=== PATIENT | male | born 1980 | race Caucasian/White ===

== ENCOUNTER 2022-04-30 14:52 | Emergency (ER) | payer MEDICARE, OTHER ==
[~2022-04-30] VITALS: Ht 175.3 cm; Wt 65.8 kg
--- NOTE | 2022-04-30 14:59 | NUR ---
ARRIVAL PT ARRIVED AMBULATORY TO ED 8 WITH C/O SUICIDAL THOUGHTS. PT STATES IF WE DONT ADMIT HIM HES GOING TO RUN IN FRONT OF A TRAIN AND HE TRIED TO TALK TO HIS FAMILY AND THEY ARE TIRED OF HIM. PT IS NOT ON ANTIDEPRESSANTS AND HAS INPT AND OUTPT EXPERIENCE. EVERYTHING TAKEN OUT OF THE ROOM, PTS CLOTHING AND BELONGINGS REMOVED. VITALS TAKEN AND DR NOTIFIED.
--- NOTE | 2022-04-30 15:10 | NUR ---
AIDA CALLED [facility] FOR AN EVALUATION
[2022-04-30 15:14] VITALS: BP 133/86
--- NOTE | 2022-04-30 15:14 | PCM.EKG ---
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
[2022-04-30 15:24] LABS: BASOPHIL % 0.3 % (0.0-0.2); EOSINOPHIL % 0.1 % (0.0-5.0); LYMPHOCYTES # 1.18 10^3/uL1 (1.0-4.8); LYMPHOCYTES % 13.5 % (24.0-44.0); MEAN CORP HGB 32.8 pg (26-34); MONOCYTES # 0.5 10^3/uL (0.3-0.8); MONOCYTES % 5.8 % (5.0-12.0); NEUTROPHILS % 80.3 % (41.0-85.0); PLATELET COUNT 182 10^3/uL (150-400); RED CELL DISTRIBUTION WIDTH 12.8 % (11.5-14.5)
--- NOTE | 2022-04-30 15:30 | NUR ---
PSYCH NURSE CONSULT: CSS[facility] AND PSYCH EVALUATION FOR POSSIBLE ADMISSION TO U COMPLETED. PATIENT IS HIGH RISK FOR SUICIDE. THIS NURSE WILL CONTACT PSYCHIATRIC PROVIDER.
[2022-04-30 15:37] LABS: BILIRUBIN,URINE NEGATIVE (NEGATIVE); UROBILINOGEN,URINE 0.2 E.U./dL (0.2)
--- NOTE | 2022-04-30 15:47 | ER.PDOC ---
General Chief Complaint: Requesting Medical Care Stated Complaint: MEDICAL CLEARANCE Time seen by MD: 15:43 Source: patient Exam Limitations: no limitations History of Present Illness Initial Comments Medical clearance for inpatient psychiatric treatment for suicidal ideation today. Patient has thoughts of jumping on a railway. Timing/Duration: this morning Intent: Suicide Severity: moderate Associated Symptoms: Suicidal Thoughts Prior symptoms/Treatment: Similar symptoms previous Allergies: Coded Allergies: No Known Allergies (Unverified , 04/30/22) Past Medical History Medical History: no pertinent history Surgical History: no surgical history Family History Significant Family History: no pertinent family hx Social History Smoking: non-smoker Alcohol Use: none Drug Use: marijuana Reviewed Nursing Reviewed: Vital Signs, Abn. Noted, Nursing Assessment Review of Systems Constitutional: no symptoms reported EENTM: no symptoms reported Respiratory: no symptoms reported Cardiovascular: no symptoms reported Gastrointestinal: no symptoms reported Psychiatric/Neurological: see HPI All Other Systems: Reviewed and Negative Physical Exam General Appearance: No acute distress, Alert Neck: Non-Tender, Full Range of Motion, Supple, Normal Inspection Respiratory: chest non-tender, lungs clear, normal breath sounds, no respiratory distress, no accessory muscle use Cardiovascular: Normal Peripheral Pulses, Regular Rate, Rhythm, No Edema, No Gallop, No JVD, No Murmur Gastrointestinal: Normal Bowel Sounds, No Organomegaly, No Pulsatile Mass, Non Tender, Soft Extremities: Non-Tender, Normal Range of Motion, No Evidence of Trauma, No Edema Neurological/Psychiatric: Depressed Affect Appearance/Memory/Insight: Appropriate Appearance, Appropriate Insight, Neat, No Memory Impairment Behavior/Eye Contact/Speech: Threatening Eye Contact Thoughts/Hallucinations: Normal Thought Pattern, No Apparent Hallucination Skin: Normal Color, Warm/Dry Results/Orders Results/Orders Orders - STIVEN TRIMBLE MD Nicotine (Nicotine 21 Mgpatch) (05/01/22 09:07) Acetaminophen (Tylenol) (05/01/22 09:09) Vital Signs Date Time Temp Pulse Resp B/P (MAP) Pulse Ox O2 Delivery O2 Flow Rate FiO2 05/01/22 08:13 97.7 65 16 130/66 (87) 95 Room Air* 0 21 05/01/22 06:00 98.6 59 20 115/64 (81) 97 Room Air* 0 21 04/30/22 15:14 98.8 86 18 133/86 (102) 97 Room Air* 0 21 04/30/22 15:14 98.8 86 18 97 04/30/22 15:14 98.8 86 18 Administered Medications Medications (Trade) Dose Ordered Sig/Katy Route PRN Reason Start Time Stop Time Status Last Admin Dose Admin Acetaminophen (Tylenol) 500 mg STAT STAT PO 05/01/22 09:09 05/01/22 09:10 DC 05/01/22 09:11 500 MG Ibuprofen (Motrin) 600 mg OT ONCE PO 05/01/22 03:30 05/01/22 03:32 DC 05/01/22 03:30 600 MG Ibuprofen (Motrin) 600 mg STAT STAT PO 04/30/22 17:40 04/30/22 17:41 DC 04/30/22 17:41 600 MG Nicotine (Nicotine 21 Mgpatch) 1 each STAT STAT TD 05/01/22 00:00 05/01/22 06:23 DC 05/01/22 00:01 1 EACH Nicotine (Nicotine 21 Mgpatch) 1 each STAT STAT TD 05/01/22 09:07 05/01/22 09:08 DC 05/01/22 09:08 1 EACH Laboratory Tests Test 04/30/22 00:00 04/30/22 15:18 Urine Collection Type UNKNOWN Urine Color YELLOW Urine Appearance CLEAR Urine Bilirubin NEGATIVE (NEGATIVE) Urine Ketones NEGATIVE (NEGATIVE) Urine Specific [place] 1.015 (1.005-1.030) Urine pH 6.0 (4.5-8.0) Urine Protein NEGATIVE (NEGATIVE) Urine Urobilinogen 0.2 E.U./dL (0.2) Urine Nitrate NEGATIVE (NEGATIVE) Urine Leukocyte Esterase NEGATIVE (NEGATIVE) Urine Glucose (Auto)(UA) NEGATIVE (NEGATIVE) Urine Blood NEGATIVE (NEGATIVE) Urine Opiates Screen PRESUMPTIVE POSITIVE Urine Methadone Screen PRESUMPTIVE POSITIVE Urine Barbiturates Screen NEGATIVE (c/o200ng/mL) Urine Phencyclidine Screen NEGATIVE (c/o 25ng/mL) Ur Amphetamine/Methamphetamine NEGATIVE (yv7276un/mL) Urine MDMA Screen (Ecstasy) NEGATIVE (c/o300ng/mL) Urine Benzodiazepines Screen NEGATIVE (c/o200ng/mL) Urine Cocaine Metabolite Screen NEGATIVE (c/o300ng/mL) Ur Tetrahydrocannabinol (THC) Scrn PRESUMPTIVE POSITIVE (c/o SARS-CoV-2 Antigen (Rapid) NEGATIVE (NEGATIVE) White Blood Count 8.7 10^3/uL (4.5-11.0) Red Blood Count 4.15 10^6/uL (4.50-5.90) L Hemoglobin 13.6 g/dL (13.9-16.3) L Hematocrit 40.0 % (37.0-53.0) Mean Corpuscular Volume 96.4 fL (78-100) Mean Corpuscular Hemoglobin 32.8 pg (26-34) Mean Corpuscular Hemoglobin Concent 34.0 g/dL (33-36.5) Red Cell Distribution Width 12.8 % (11.5-14.5) Platelet Count 182 10^3/uL (150-400) Mean Platelet Volume 9.4 fL (7.8-11.0) Neutrophils (%) (Auto) 80.3 % (41.0-85.0) Lymphocytes (%) (Auto) 13.5 % (24.0-44.0) L Monocytes (%) (Auto) 5.8 % (5.0-12.0) Neutrophils # (Auto) 7.0 10^3/uL (1.8-7.7) Lymphocytes # (Auto) 1.18 10^3/uL1 (1.0-4.8) Monocytes # (Auto) 0.5 10^3/uL (0.3-0.8) Absolute Immature Granulocyte (auto 0 10^3 u/L (0-2) Absolute Eosinophils (auto) 0.0 10^3/uL (0.0-0.2) Immature Granulocytes % 0.00 % (0.00-0.50) Eosinophils % 0.1 % (0.0-5.0) Basophils % 0.3 % (0.0-0.2) H Basophils # 0.0 10^3/uL (0.0-0.1) Sodium Level 140 mmol/L (132-145) Potassium Level 3.7 mmol/L (3.6-5.2) Chloride Level 104.0 mmol/L (96-109) Carbon Dioxide Level 28.9 mmol/L (20.0-32) Anion Gap 10.8 Blood Urea Nitrogen 15 mg/dL (7-18) Creatinine 0.90 mg/dL (0.59-1.40) Estimated GFR () 113.7 (>/=60) Est GFR (CKD-EPI)(Non-Afr [place]) 93.9 (>/=60) BUN/Creatinine Ratio 16.0 Glucose Level 108 mg/dL (70-110) Calcium Level 8.8 mg/dL (8.4-10.5) Total Bilirubin 0.5 mg/dL (0.2-1.0) Aspartate Amino Transferase (AST) 19 U/L (0-35) Alanine Aminotransferase (ALT) 21 U/L (12-78) Alkaline Phosphatase 48 U/L (50-136) L Troponin I High Sensitivity 5 ng/L (0-75) Total Protein 6.9 g/dL (6.4-8.2) Albumin 4.1 g/dL (3.4-5.0) Globulin 2.8 Albumin/Globulin Ratio 1.464 Triglycerides Level 54 mg/dL (20-160) Cholesterol Level 158 mg/dL (120-240) LDL Cholesterol, Calculated 96.2 VLDL Cholesterol, Calculated 10.8 HDL Cholesterol 51 mg/dL (32-96) Cholesterol Ratio (LDL/HDL) 1.8 Cholesterol/HDL Ratio 3.684268 Vitamin D 25-Hydroxy 24.5 ng/mL (30.0-100.0) L Thyroid Stimulating Hormone (TSH) 2.052 mIU/mL (0.358-3.740) Salicylates Level < 2.8 mg/dL (2.8-20.0) L Acetaminophen Level 6 ug/mL (10-30) L Progress Progress CBC is unremarkable. Chemistry is normal. Lipid panel is unremarkable. Aspirin and Tylenol are normal. UDS positive for methadone and THC. Urinalysis negative. 8am on 05/01/2022: [facility] Care transferred to Dr. Trimble. Atilio. Minimal change in clinical condition; awaiting bed availability at psychiatric treatment facility. This is ultimately accomplished, court orders and other things arranged, and pt is transferred 12:36 EKG/XRAY/CT/US EKG: NSR EKG Comments: HR 73, normal P axis ER DEPART Departure Time of Disposition: 12:36 Disposition: 02 SHORT TERM HOSPITAL Impression: Primary Impression: Suicidal ideation Condition: Stable Referrals: PCP,UNKNOWN (PCP) PRIMARY CARE PROVIDER Comments Patient medically cleared for inpatient psychiatric treatment. Duration or Time Spent with Pa: 2 hours NORBERT TREVINO MD Apr 30, 2022 15:47 STIVEN TRIMBLE MD May 01, 2022 09:25
[2022-04-30 16:07] LABS: CARBON DIOXIDE 28.9 mmol/L (20.0-32); GLUCOSE 108 mg/dL (70-110)
--- NOTE | 2022-04-30 16:42 | NUR ---
Luis Luis DECLINED DUE TO NOT BEING ABLE TO MEET HIS NEEDS AND NOT HAVING A SAFE PLACE TO GO AFTER DISCHARGE.
--- NOTE | 2022-04-30 16:43 | NUR ---
PSYCH NURSE: DR. SOLOMON NOTIFIED AND PATIENT DECLINED FOR ACCEPTANCE. SPOKE WITH NORMAN SANDOVAL AND ADVISED FOR PATIENT TO BE PLACED ON XFERALL.
--- NOTE | 2022-04-30 17:08 | NUR ---
FREDDY FAXED INFO AND CALLED. PT HAS 8 PEOPLE AHEAD OF HIM AND WONT BE LOOKED AT TILL THE AM MOST LIKELY.
--- NOTE | 2022-04-30 17:31 | NUR ---
UPDATE DR TOUSSAINT WENT TO TELL PT THE PLAN AND THAT HE WILL BE HELD HERE TILL HE GETS ACCEPTED SOMEWHERE ELSE. PT STARTED YELLING AT DR TOUSSAINT AND SAID IF HE DIDNT GET A COUNSELOR HE WANTED TO LEAVE AND THAT HE WILL KILL HIMSELF.
[2022-04-30] MEDS ORDERED: MOTRIN ONE (17:35)
[2022-04-30] MEDS ORDERED: MOTRIN PO STA (17:40)
[2022-04-30] MEDS ORDERED: NICOTINE 21 MGPATCH TD ONE (19:29)
[2022-05-01] MEDS ORDERED: MOTRIN ONE (03:26)
[2022-05-01] MEDS ORDERED: MOTRIN PO ONE (03:30)
--- NOTE | 2022-05-01 03:30 | NUR ---
pain pt awake alert c/o generalized pain, demanding wanting to call family and wanting something for his withdrawl. Dr. Patel notified hallie mullins.
[2022-05-01 06:00] VITALS: BP 115/64
--- NOTE | 2022-05-01 07:10 | NUR ---
ALFRED SPOKE WITH SY WITH INTAKE, WILL LOOK OVER PATIENT INFORMATION AND CALL THE PHYSICIAN AND CALL THE ED BACK SOON POSSIBLE
--- NOTE | 2022-05-01 07:52 | NUR ---
BREAKFAST WAS OFFERED PT REFUSED BUT REQUESTED COFFEE. COFFEE WAS GIVEN.
[2022-05-01 08:13] VITALS: BP 130/66
--- NOTE | 2022-05-01 08:53 | NUR ---
ALFRED HAYES SAID THEY ARE LOOKING AT HIS INFO AND WILL CALL US BACK.
[2022-05-01] MEDS ORDERED: NICOTINE 21 MGPATCH TD ONE (09:05)
[2022-05-01] MEDS ORDERED: NICOTINE 21 MGPATCH TD STA ×2 (09:07)
[2022-05-01] MEDS ORDERED: TYLENOL PO STA (09:09)
[2022-05-01] MEDS ORDERED: TYLENOL PO ONE (09:10)
--- NOTE | 2022-05-01 09:22 | NUR ---
[facility] THE [facility].
--- NOTE | 2022-05-01 09:22 | NUR ---
PAV ACCEPTED WITH DR. FELIZ. AOD IS SYLWIA GARCIA.
--- NOTE | 2022-05-01 09:26 | NUR ---
FREDDY REQUESTED MEDICAL CLEARANCE AND THEN WILL CALL WITH ACCEPTING DOCTOR.
--- NOTE | 2022-05-01 10:07 | NUR ---
[facility] REQUESTED A BLOW TORCH OPERATOR FROM [facility]
--- NOTE | 2022-05-01 11:50 | NUR ---
JOURNAL REQUEST PATIENT REQUESTS A PIECE OF PAPER AND PEN TO DO SOME JOURNALING WITH. THIS NURSE EXPLAINS TO PATIENT HE CANNOT HAVE A PEN DUE TO SAFETY REASONS BUT THAT I CAN WRITE DOWN HIS FEELINGS IF HE IS COMFORTABLE WITH THAT. PATIENT AGREES AND TELLS THIS NURSE "LIN BROKE WITH WITH ME AND SHE'S THE ONE BEEN CHANGING EMOTIONALLY SO I CAN'T FIX ANYTHING IN OUR RELATIONSHIP." PATIENT THEN STATES THAT IS ALL HE WANTED TO JOURNAL. THIS NURSE ASKS IF HE NEEDS TO TALK ABOUT ANYTHING ELSE OR HAS ANY OTHER COMMENTS/QUESTIONS/CONERNS AT THIS TIME, PATIENT DENIES FURTHER NEEDS AT THIS TIME. JOURNALING WROTE DOWN AND PLACED IN CHART, COPY MADE TO SEND WITH PAPERWORK TO [facility].
== END 2022-05-01 12:36 | disposition short-term general hospital (02) ==
LOC: ER 14:52
DX: R45.851 Suicidal ideations (principal); F12.90 Cannabis use, unspecified, uncomplicated; Z20.822 Contact with and (suspected) exposure to COVID-19
CPT/HCPCS: 99285; 81003; 87426; 80053; 85025; 36415; 84484; 82306; 80061; 80307; 80299 ×2; 84443; 93005; A9150; 86592